=== PATIENT | male | born 1945 | race Caucasian/White ===

== ENCOUNTER → 2019-08-28 | Day surgery (SDC) | payer MEDICARE, OTHER ==
[~2019-08-28] MED LIST: ASPIRIN325 MG PO; CALTRATE 600 W1 EACH PO; CENTRUM ADULTS1 EACH PO; FENTANYL CITRATE/PF 100MCG/2 ML INJ ONE; FIBER TABS625 MG PO; METFORMIN HCL500 MG PO; METOPROLOL TART50 MG PO; MIDAZOLAM HCL 2 MG/2 ML VIAL ONE; NEXIUM20 MG PO; OR PHACO EYE KIT ONE; PREOP PHACO EYE KIT ONE; TELMISARTAN-HC1 EAC1 PO; VIT C PO; VIT D3 PO
[2019-08-28 11:50] VITALS: BP 135/78
== END | disposition home or self-care (01) ==
LOC: OR 08:42
PROVIDERS: ATTEND Ophthalmology
DX: H25.11 Age-related nuclear cataract, right eye (principal); I10 Essential (primary) hypertension; E11.9 Type 2 diabetes mellitus without complications; Z79.82 Long term (current) use of aspirin; Z79.84 Long term (current) use of oral hypoglycemic drugs
CPT/HCPCS: 36415; 66984; 82948; J2250; J3010; V2632